=== PATIENT | female | born 1965 | race Caucasian/White ===

== ENCOUNTER → 2019-01-27 | Outpatient (CLI) | payer OTHER ==
[~2019-01-27] VITALS: Ht 162.6 cm; Wt 103.0 kg
[~2019-01-27] MED LIST: AMITRIPTYLINE H25 M3 PO; ATORVASTATIN CA80 MG PO; GLIMEPIRIDE4 MG PO; LOSARTAN POTAS100 MG PO; METFORMIN HCL500 M3 PO; TOPROL XL100 MG PO; XARELTO1 EACH PO; ZOLOFT100 MG PO
[2019-01-27 07:19] VITALS: BP 165/82
[2019-01-27 07:22] LABS: HEMATOCRIT 33.2 % (37.0-47.0); HEMOGLOBIN 10.8 gm/dL (12.0-15.0); MCH 27.3 pg (26.0-34.0); MCHC 32.4 g/dL (28.0-37.0); MCV 84.5 fL (80.0-100.0); RBC 3.93 mil/uL (4.20-5.00); RDW 16.2 % (10.5-14.5); WBC 10.3 thou/uL (4.0-11.0)
[2019-01-27 07:32] LABS: CALCIUM 8.9 mg/dL (8.5-10.1); CREATININE 0.8 mg/dL (0.6-1.0); POTASSIUM 3.6 mmol/L (3.5-5.1)
--- NOTE | 2019-01-29 12:07 | EKG ---
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
--- NOTE | 2019-01-29 12:13 | EKG ---
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: Armaan PALOMO : 1965 Requested By: Hossein Esparza Order Number: [id number] MD: Curtis Robertson Measurements Intervals [place] Rate: 68 P: 60 [place]: 165 QRS: 44 QRSD: 91 T: 43 QT: 486 QTc: 517 Interpretive Statements Sinus rhythm Prolonged QT interval nonspecific ST segment abnormalities No previous ECG available for comparison Electronically Signed On 01-29-2019 12:13:21 LENS INSPECTOR by Curtis Robertson [email or web address] <ELECTRONICALLY SIGNED> By: Curtis Robertson MD 01/29/19 1213 1324 1324 Curtis Robertson MD /JACOB
--- NOTE | 2019-02-02 13:50 | CATHLAB ---
[facility] [address] [place] [address] INVASIVE PROCEDURE REPORT Name: TWILA PUENTESFRANCO Room #: REG S[facility]#: [id number] Admission: 01/27/19 Attend Phys: Hossein Esparza, Discharge: Date of : 65 Report #: [id number] THIS REPORT FOR: //name// APPROVED REPORT Study performed: 01/27/2019 07:54:39 Patient Details Patient Status: Out-Patient Room #: The patient is a 53 year-old female Event Personnel Hossein Esparza Consulting Sales Executive, Lukas Gleason RN, Miladis James RN RN, Teresita Maya RTR, SPICE BLENDER Monitor, Kalee Day RTR Scrub Procedures Performed Art Access - R femoral artery* Left Heart Cath w/or w/o Coronaries [id number] LHCAortogram Abdominal Peripheral Angio 374642 66883 Initial Mod Sed Same Phys/QHP Gr 148099 38062 Mod Sed Same Phys/QHP Ea 370455 Indication Positive stress test Procedure Narrative The Right Groin^ was infiltrated with 1% Lidocaine subcutaneous anesthesia. A PINNACLE 6FR Sheath #[id number] sheath was inserted into the RFA^. Coronary angiography was performed using coronary diagnostic catheters. The right coronary system was accessed and visualized with a JR4 catheter. The left coronary system was accessed and visualized with a JL4 catheter. The left ventricle was accessed and visualized with a PIGTAIL catheter. Left ventriculogram was performed in 30 degree projection. An aortogram of the abdominal aorta was performed. Pre-demployment femoral angiogram was performed . Closure device was deployed with a 6 Fr MYNX CONTROL 6F/7F #[id number]. There was no hematoma. Intraoperative Conscious Sedation Sedation start time: 08:40 Case end Time: 10:34 Fentanyl 100 mcg Versed 2 mg Conscious sedation, fluoro time, dose, and contrast are a combined total for the left heart cath and the bilateral renals/DEVELOPER PROVER UPHOLSTERING bilateral renals [facility] [address] [place] [address] INVASIVE PROCEDURE REPORT Name: IVÁNLETA PUENTESFRANCO Room #: REG [facility] [id number] Admission: 01/27/19 Attend Phys: Hossein Esparza, Discharge: Date of : 65 Report #: [id number] Fluoro Time: 7.40 minutes Dose: DAP 84499.00 cGycm2 1496.6 mGy Contrast Type and Amount: Omnipaque 185 ml Hemodynamics The aortic pressure is 201/103 mmHg with a mean of 146 mmHg. The left ventricular pressure is 235/14 mmHg with a mean of mmHg. The left ventricular end diastolic pressure is 39 mmHg. PCI Technique Lesion Percutaneous coronary intervention was performed on the Left Renal. PCI Technique Lesion 2 Percutaneous Coronary Intervention was performed on the Right Renal. Conclusion #1 normal left ventricular size with normal left ventricular function EF 60% 2+ mitral regurgitation #2 abdominal aortogram revealing no evidence of significant stenosis iliac system appear to be widely patent #3 left main is short free of disease giving rise to LAD and circumflex #4 LAD is widely patent proximally becomes and atraumatic and diffusely disease vessel of the distal third. No indication for intervention. #5 circumflex OM is nondominant but moderately large in distribution widely patent. #6 dominant right coronary artery with previous multiple stents is occluded proximally. There is some collateral filling of the PDA RADHA via the left system. #7 selective injection of bilateral single renal arteries reveals moderate fibromuscular disease bilaterally. Recommendations and plan: Continue aggressive risk factor modification. No indication for coronary intervention. We will have interventional radiology Dr. Vazquez intervened on bilateral renal fibromuscular disease. Clinically patient has significant labile hypertension. <ELECTRONICALLY SIGNED> By: Hossein Esparza MD, FACC 02/02/19 1349 1349 1349 Hossein Esparza MD, FACC /INF
== END | disposition home or self-care (01) ==
LOC: CATH 06:41
PROVIDERS: Internal Medicine Cardiovascular Disease
DX: R94.39 Abnormal result of other cardiovascular function study (principal); I25.10 Atherosclerotic heart disease of native coronary artery without angina pectoris; I70.1 Atherosclerosis of renal artery; I77.3 Arterial fibromuscular dysplasia; I15.0 Renovascular hypertension; I73.9 Peripheral vascular disease, unspecified; I11.0 Hypertensive heart disease with heart failure; I50.9 Heart failure, unspecified; E11.9 Type 2 diabetes mellitus without complications; I48.91 Unspecified atrial fibrillation; E78.5 Hyperlipidemia, unspecified; J44.9 Chronic obstructive pulmonary disease, unspecified; G47.33 Obstructive sleep apnea (adult) (pediatric); I42.9 Cardiomyopathy, unspecified; E66.09 Other obesity due to excess calories; Z98.890 Other specified postprocedural states; Z79.899 Other long term (current) drug therapy; Z88.0 Allergy status to penicillin; Z88.2 Allergy status to sulfonamides; Z91.040 Latex allergy status; Z79.82 Long term (current) use of aspirin

== ENCOUNTER 2019-11-15 16:50 | Emergency (ER) | payer OTHER ==
[~2019-11-15] VITALS: Ht 162.6 cm; Wt 99.8 kg
[2019-11-15 18:55] LABS: ABSOLUTE NEUTROPHILS 7.3 thou/uL (1.4-8.2); BASOPHILS 1.1 % (0.0-2.0); EOSINOPHILS 1.9 % (0.0-3.0); HEMATOCRIT 39.3 % (37.0-47.0); HEMOGLOBIN 12.6 gm/dL (12.0-15.0); LYMPHOCYTES 25.6 % (24.0-44.0); MCH 25.9 pg (26.0-34.0); MONOCYTES 4.9 % (1.0-8.0); PLATELET COUNT 191 thou/uL (150-400); POLYS 66.5 % (36.0-66.0); RBC 4.85 mil/uL (4.20-5.00); RDW 17.8 % (10.5-14.5); WBC 11.1 thou/uL (4.0-11.0)
[2019-11-15] MEDS ORDERED: PLAVIX 75 MG TA75 MG PO (18:58)
[2019-11-15] MEDS ORDERED: OZEMPIC1 MG/0.75 (18:58)
[2019-11-15] MEDS ORDERED: AMIODARONE HCL400 MG PO (18:59)
[2019-11-15 19:10] LABS: CALCIUM 9.2 mg/dL (8.5-10.1); CREATININE 1.1 mg/dL (0.6-1.0); POTASSIUM 3.9 mmol/L (3.5-5.1)
[2019-11-15 19:11] LABS: MAGNESIUM 1.7 mg/dL (1.8-2.4)
[2019-11-15 19:17] LABS: ALBUMIN 4.1 g/dL (3.4-5.0); DIRECT BILIRUBIN 0.2 mg/dL (<0.1-0.2); LIPASE 220 U/L (73-393); SGOT 24 U/L (15-37); SGPT 34 U/L (30-65); TOTAL BILIRUBIN 1.3 mg/dL (0.2-1.0); TOTAL PROTEIN 8.9 g/dL (6.4-8.2); TROPONIN-I <0.06 ng/mL (<0.06)
[2019-11-15 20:56] VITALS: BP 183/82
--- NOTE | 2019-11-16 08:22 | EKG ---
[facility] [place] [address] ELECTROCARDIOGRAM REPORT Name: FRANCO GILLESPIE Room #: DEP [facility]#: [id number] Admission: 11/15/19 Attend Phys: Discharge: 11/15/19 Date of : 65 Report #: [id number] THIS REPORT FOR: cc: SARWAT FRAUSTO Physician not on staff Phoenix Rogers MD [facility] ~ THIS REPORT FOR: //name// [facility] ED Test Date: 2019-11-15 Test Time: 19:02:26 Pat Name: FRANCO PUENTES Department: Room: Gender: Senior Net C Developer: jamey : 1965 Requested By: Williams Jones Order Number: [id number] MD: Phoenix Rogers Measurements Intervals [place] Rate: 86 P: 71 [place]: 184 QRS: 39 QRSD: 90 T: 20 QT: 427 QTc: 511 Interpretive Statements Sinus rhythm Prolonged QT interval Compared to ECG 01/27/2019 13:24:05 No significant changes Electronically Signed On 11-16-2019 8:21:57 CDT by Phoenix Rogers [email or web address] <ELECTRONICALLY SIGNED> By: Phoenix Rogers MD, FAC 11/16/19820 190 01 Phoenix Rogers MD, [facility] /EPI
== END 2019-11-15 21:09 | disposition home or self-care (01) ==
LOC: ER 16:50
PROVIDERS: Emergency Medicine
DX: R20.2 Paresthesia of skin (principal); I48.91 Unspecified atrial fibrillation; E03.9 Hypothyroidism, unspecified; M79.601 Pain in right arm; M79.602 Pain in left arm; I11.0 Hypertensive heart disease with heart failure; I50.9 Heart failure, unspecified; I25.10 Atherosclerotic heart disease of native coronary artery without angina pectoris; J44.9 Chronic obstructive pulmonary disease, unspecified; E78.5 Hyperlipidemia, unspecified; Z79.01 Long term (current) use of anticoagulants; Z79.899 Other long term (current) drug therapy; Z88.0 Allergy status to penicillin; Z88.2 Allergy status to sulfonamides; Z88.8 Allergy status to other drugs, medicaments and biological substances; Z91.040 Latex allergy status

== ENCOUNTER 2020-03-15 22:05 | Emergency (ER) | payer OTHER ==
[~2020-03-15] VITALS: Ht 162.6 cm; Wt 83.5 kg
--- NOTE | ~2020-03-15 | EMS ---
[address] [address] EMS Patient Care Report Name: FRANCO GILLESPIE Room #: REG RAD[facility] Eli#: [id number] Admission: 03/15/20 Attend Phys: Discharge: Date of : 65 Report #: [id number] THIS REPORT FOR: //name// Report Transmitted: 03/15/2020 22:22 EMS Care Summary [place], [place]/[facility] Incident [id number] @ 03/15/2020 21:06 Incident Location [address] [place] [address] Patient FRANCO GOMEZ Female, 54 Years 1965 Patient Address [address] [place] [address] Patient History Cardiac Arrythmia,Hypertension (HTN),Hyperlipidemia,Cardiac Condition - Other,Cardiac - Stent,Type 2 Diabetes, Patient Allergies Penicillin allergy,Sulfa, Patient Medications Atorvastatin, Amiodarone, Metoprolol, Amitriptyline, Glimepiride, Sertraline, Losartan, Metformin, Chief Complaint NAUSEA Disposition Transported Lights/[place] Reason Sick Person Transported To [facility] Narrative DISPATCHED EMERGENCY ON A SICK. 54 Y/O FEMALE SITTING ON TOILET IN BATHROOM APPEARING IN DISTRESS AND DIAPHORETIC. GCS 15 AND A/OX4. CONSENTS FOR [place] AND [address] [address] EMS Patient Care Report Name: FRANCO GILLESPIE [facility]: [facility] [id number] Admission: 03/15/20 Attend Phys: Discharge: Date of : 65 Report #: [id number] TRANSPORTATION. PT STATES THAT SHE HAS BEEN NAUSEOUS AND WEAK FOR THE PAST 2 HOURS AND IS NOW HAVING DIARRHEA. PT STARTED FEELING THIS WAY WHEN SHE WAS SITTING AND WATCHING TV. PT HAD SOME OLIVES TO EAT EARLIER TODAY BUT DENIES EATING ANYTHING ELSE. PT HAS HISTORY OF DIABETES AND CARDIAC STENTS. DENIES ANY C/P OR SOA. DENIES ANY COVID SYMPTOMS. H/R AND R/R OBTAINED. PLACED ON MONITOR AND V/S'S OBTAINED. ECG OBTAINED SHOWING ST DEPRESSION. ADVISED DISPATCH OF NEED FOR [facility] EMERG[facility] FOR LIFT ASSIST. ZOFRAN ADMINISTERED FOR NAUSEA. ASPIRIN ADMINISTERED FOR POSSIBLE MN. PUMPER 41 ARRIVES ON SCENE. MOVED WITHOUT INCIDENT TO STRETCHER VIA STAIRCHAIR. PT VOMITS. MOVED WITHOUT INCIDENT TO AMBULANCE VIA STRETCHER. PT REATTACHED TO THE MONITOR. IV'S ATTEMPTED WITHOUT ESTABLISHMENT. PLACED ON OXYGEN. IV ESTABLISHED. TRANSPORTED TO [facility]. REASSESSED ENROUTE. REMAINS GCS 15 AND A/OX4. V/S'S CONTINOUSLY MONITORED ENROUTE. CONTINUES TO DENY ANY CHEST PAIN. NAUSEA, VOMITING, DIARRHEA, AND DIAPHORESIS IMPROVED. REPORT CALLED TO HOSPITAL AND ADVISED OF ABNORMAL 12-LEAD ECG. MOVED WITHOUT INCIDENT TO ER HOSPITAL BED 11. PT CARE TRANSFERRED TO ED RN. Appended: TICKET LOCKED PRIOR TO OBTAINING NURSE AND PT SIGNATURES. SPOKE WITH CAR 120 AND ADVISED OF SITUATION. Initial Vitals @21:25P: 98,R: 18,Pain: 0/10,GCS: 15,CO: 0,MN Suspected: true @21:46P: 90,R: 16,BP: 165/92,Pain: 0/10,GCS: 15,SpO2: 100,Revised Trauma: 12,MN Suspected: true @21:23P: 98,R: 16,BP: 126/80,Pain: 0/10,GCS: 15,Glucose: 244,SpO2: 98,Revised Trauma: 12,MN Suspected: true @22:00P: 92,R: 18,BP: 144/90,Pain: 0/10,GCS: 15,CO: 1,SpO2: 100,Revised Trauma: 12,MN Suspected: true @21:20P: 80,R: 20,Pain: 0/10,GCS: 15, Assessments @21:20MENTAL:Person Oriented,Time Oriented,Place Oriented,Event Oriented,SKIN:Diaphoresis,Pale,HEENT:Head/Face: No Abnormalities,Neck/Airway: No Abnormalities,LUNG SOUNDS:General: Vomiting,General: Diarrhea,General: Nausea,ABDOMEN:General: Vomiting,General: Diarrhea,General: Nausea,PELVIS//GI:EXTREMITIES:Capillary Refill: Left Upper: < 2 Sec,Capillary Refill: Right Upper: < 2 Sec,Capillary Refill: Left Lower: < 2 Sec,Capillary Refill: Right Lower: < 2 Sec,Left Arm: No Abnormalities,Right Arm: No Abnormalities,Left Leg: No Abnormalities,Right Leg: No Abnormalities,PULSE:Radial: 2+ Normal,NEURO:No Abnormalities,@21:57MENTAL:Person Oriented,Event Oriented,Time Oriented,Place Oriented,SKIN:HEENT:Head/Face: No Abnormalities,Neck/Airway: No Abnormalities,LUNG SOUNDS:General: Nausea,ABDOMEN:General: Nausea,PELVIS//GI:EXTREMITIES:Capillary Refill: Right Upper: < 2 Sec,Capillary Refill: Left Upper: < 2 Sec,Capillary Refill: Left Lower: < 2 Sec,Capillary Refill: Right Lower: < 2 Sec,Left Arm: No Abnormalities,Right Arm: No Abnormalities,Left Leg: No Abnormalities,Right Leg: No [address] [address] EMS Patient Care Report Name: FRANCO GILLESPIE Room #: REG [facility]..#: [id number] Admission: 03/15/20 Attend Phys: Discharge: Date of : 65 Report #: [id number] Abnormalities,PULSE:Radial: 2+ Normal,NEURO:No Abnormalities, Impression Nausea Procedures @21:44 cc (20 ga) Site: Antecubital-RightResponse: UnchangedFailed@21:44 cc (20 ga) Site: Hand-RightResponse: UnchangedFailed@21:45Saline Lock 10cc (18 ga) Site: Antecubital-LeftResponse: UnchangedSucceeded@21:2512-Lead ECGResponse: UnchangedSucceeded@21:233-Lead ECGResponse: UnchangedSucceeded@21:29Zofran - 4 Milligrams (mg) - OralResponse: Unchanged@21:32Aspirin - 324 Milligrams (mg) - OralResponse: Unchanged@21:19ALS AssessmentResponse: UnchangedSucceeded@21:36StairchairResponse: Unchanged@21:44Oxygen FlowRate: 2 Device: Nasal Cannula (NC) Response: UnchangedSucceeded@21:38StretcherResponse: Unchanged Timeline 21:03,Call Received 21:03,Dispatch Notified 21:06,Dispatched 21:09,En Route 21:17,On Scene 21:19,At Patient 21:19,ALS Assessment,Response: UnchangedSucceeded, 21:20,BP: / M,PULSE: 80,RR: 20 R,SPO2: Ox,ETCO2: ,BG: ,PAIN: 0,GCS: 15, 21:23,3-Lead ECG,Response: UnchangedSucceeded, 21:23,BP: 126/80 M,PULSE: 98,RR: 16 R,SPO2: 98 Ox,ETCO2: ,B,PAIN: 0,GCS: 15, 21:25,12-Lead ECG,Response: UnchangedSucceeded, 21:25,BP: / M,PULSE: 98,RR: 18 R,SPO2: Ox,ETCO2: ,BG: ,PAIN: 0,GCS: 15, 21:29,Zofran - 4 Milligrams (mg) - Oral,Response: Unchanged 21:32,Aspirin - 324 Milligrams (mg) - Oral,Response: Unchanged 21:36,Stairchair,Response: Unchanged 21:38,Stretcher,Response: Unchanged 21:44,Oxygen FlowRate: 2 Device: Nasal Cannula (NC) Response: UnchangedSucceeded, 21:44, cc 20 ga Site: Antecubital-Right,Response: UnchangedFailed, 21:44, cc 20 ga Site: Hand-Right,Response: UnchangedFailed, 21:45,Saline Lock 10cc 18 ga Site: Antecubital-Left,Response: UnchangedSucceeded, 21:46,BP: 165/92 M,PULSE: 90,RR: 16 R,SPO2: 100 Ox,ETCO2: ,BG: ,PAIN: 0,GCS: 15, 21:48,Depart Scene 22:00,BP: 144/90 M,PULSE: 92,RR: 18 R,SPO2: 100 Ox,ETCO2: ,BG: ,PAIN: 0,GCS: 15, 22:00,At Destination [facility] [place] [address] [place] [address] EMS Patient Care Report Name: FRANCO GILLESPIE Room #: REG [facility]#: [id number] Admission: 03/15/20 Attend Phys: Discharge: Date of : 65 Report #: [id number] 22:26,Call Closed Disclaimer v1.1 Copyright 2020 [employer] This EMS Care Summary contains data elements from the applicable legal record (which may be displayed differently). It is designed to provide pertinent information for the following purposes: continuity of care, clinical quality, and state data reporting. The complete legal record is available to ED staff and administrators of the receiving hospital in [facility]'s Patient Tracker. All data is provided "as is."
[~2020-03-15 22:05] MED LIST changes: +AMIODARONE HCL400 MG PO; +OZEMPIC1 MG/0.75; +PLAVIX 75 MG TA75 MG PO
[2020-03-15 23:02] LABS: HEMATOCRIT 37.2 % (37.0-47.0); MCH 20.9 pg (26.0-34.0); MCHC 29.5 g/dL (28.0-37.0); MCV 70.9 fL (80.0-100.0); RBC 5.25 mil/uL (4.20-5.00); RDW 19.8 % (10.5-14.5); WBC 22.3 thou/uL (4.0-11.0)
[2020-03-15 23:04] LABS: CALCIUM 10.1 mg/dL (8.5-10.1); CREATININE 1.1 mg/dL (0.6-1.0)
[2020-03-16 01:50] LABS: HEMATOCRIT 31.3 % (37.0-47.0); HEMOGLOBIN 9.3 gm/dL (12.0-15.0); MCH 20.9 pg (26.0-34.0); MCHC 29.6 g/dL (28.0-37.0); MCV 70.6 fL (80.0-100.0); RBC 4.43 mil/uL (4.20-5.00); RDW 19.4 % (10.5-14.5); WBC 17.9 thou/uL (4.0-11.0)
[2020-03-16 01:59] LABS: ANION GAP 13 mmol/L (7-16); BUN 15 mg/dL (7-18); CALCIUM 8.2 mg/dL (8.5-10.1); CHLORIDE 107 mmol/L (98-107); CO2 25 mmol/L (21-32); CREATININE 0.8 mg/dL (0.6-1.0); GLUCOSE 138 mg/dL (74-106); POTASSIUM 4.1 mmol/L (3.5-5.1); SODIUM 145 mmol/L (136-145)
[2020-03-16 02:07] LABS: TROPONIN-I <0.06 ng/mL (<0.06)
[2020-03-16] MEDS ORDERED: ZOFRAN ODT4 MG PO (02:56)
[2020-03-16 02:59] VITALS: BP 143/57
--- NOTE | 2020-03-16 07:21 | EKG ---
[place] [address] [facility] [place] [address] ELECTROCARDIOGRAM REPORT Name: FRANCO GILLESPIE [id number] Admission: 03/15/20 Attend Phys: Discharge: 03/16/20 Date of : 65 Report #: [id number] 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: SCOTTY : 1965 Requested By: Adam Aleman Order Number: [id number] MD: Orlando Davidson Measurements Intervals [place] Rate: 79 P: 70 [place]: 178 QRS: 41 QRSD: 98 T: 64 QT: 464 QTc: 533 Interpretive Statements Sinus rhythm Minimal ST depression, lateral leads Prolonged QT interval Compared to ECG 11/15/2019 19:02:26 ST (T wave) deviation now present Electronically Signed On 03-16-2020 7:21:10 DOCUMENT CONTROL SPECIALIST by Orlando Davidson [email or web address] <ELECTRONICALLY SIGNED> By: Orlando Davidson MD, LOCATED [facility]IN [facility] 03/16/20 0721 D: [id number] 13 Orlando Davidson MD, FACC /EPI
== END 2020-03-16 03:00 | disposition home or self-care (01) ==
LOC: ER 22:05
PROVIDERS: Emergency Medicine
DX: R11.2 Nausea with vomiting, unspecified (principal); R19.7 Diarrhea, unspecified; D72.829 Elevated white blood cell count, unspecified; R42 Dizziness and giddiness; I25.10 Atherosclerotic heart disease of native coronary artery without angina pectoris; E78.5 Hyperlipidemia, unspecified; E11.9 Type 2 diabetes mellitus without complications; I11.0 Hypertensive heart disease with heart failure; I50.9 Heart failure, unspecified; I48.91 Unspecified atrial fibrillation; J44.9 Chronic obstructive pulmonary disease, unspecified; Z79.899 Other long term (current) drug therapy; Z88.0 Allergy status to penicillin; Z88.8 Allergy status to other drugs, medicaments and biological substances; Z91.040 Latex allergy status; Z88.2 Allergy status to sulfonamides; Z88.7 Allergy status to serum and vaccine